=== PATIENT | female | born 1940 | race American Indian/Alaskan Native ===

== ENCOUNTER 2018-08-23 09:44 | Outpatient (CLI) | payer MEDICARE, OTHER | END 2018-08-23 09:45 | disposition home or self-care (01) | LOC: C.USIC 09:45 | DX: N95.0 Postmenopausal bleeding (principal) ==

== ENCOUNTER 2018-11-11 08:49 | Day surgery (SDC) | payer MEDICARE ==
[2018-11-11 09:34] VITALS: BMI 28.1
[2018-11-11] MEDS ORDERED: Midazolam 2 MG/2 ML VIAL ONE (12:47)
[2018-11-11] MEDS ORDERED: Propofol 10 mg/ml Inj (20 ML) ONE (12:47)
[2018-11-11] MEDS ORDERED: Lactated Ringer's 1,000 ML IV ONE (13:22)
[2018-11-11] MEDS ORDERED: HYDROmorphone 0.5 mg/0.5 ml ISec IVP PRN (13:27)
[2018-11-11 14:50] VITALS: RESP 18
[2018-11-11 15:14] VITALS: BP 157/75; PULSE 65; TEMP 97.6; O2SAT 99
--- NOTE | 2018-11-11 23:26 | OP ---
PROCEDURE DATE: 11/11/2018 PREOPERATIVE DIAGNOSIS: Postmenopausal bleeding. POSTOPERATIVE DIAGNOSIS: Postmenopausal bleeding, submucosal myoma. PROCEDURE: Hysteroscopic myomectomy, dilatation and curettage. OPERATIVE FINDINGS: Cervical stenosis, 8 to 10 weeks size anteverted uterus. Bilateral ostia visualized with submucosal mass noted within the myometrial cavity less than 1 cm along the inferior uterine wall protruding 100% into the cavity. ASSESSMENT: Endocervical curettings, endometrial curettings, submucosal myoma. ESTIMATED BLOOD LOSS: 5 mL. BLOOD PRODUCTS: None. COMPLICATIONS: None. DESCRIPTION OF PROCEDURE: The patient was taken to the operating room, where she was given general anesthesia. Once it was found to be adequate, she was placed on the operating table in dorsal supine position with legs supported using stirrups. The patient was then prepped and draped in the usual sterile fashion. A time-out was performed to confirm correct patient and correct procedure. Bimanual exam was performed with the above-mentioned findings. The cervix was adequately visualized and a single-tooth tenaculum was placed in the anterior lip of the cervix. Endocervical curettings were obtained with a Kevdarleneian curette and sent to pathology on a Telfa. Cervical dilation was performed. The uterus was then sounded to 8 cm. Following this, cervix was sequentially dilated to allow for introduction of the hysteroscope under direct visualization using normal saline as the distention media. Above-mentioned finding. Bilateral ostia were visualized. The MyoSure was then inserted and the mass was then carefully resected. Hysteroscope was then removed. Gentle curettage was done at 360 degrees until gritty texture was noted. The hysteroscope was then reintroduced. There was good hemostasis noted. The mass was then resected. All instruments were removed. There was good hemostasis at the tenaculum puncture site. At the end of the procedure, all needle, sponge and instrument counts were noted to be correct x2. The patient tolerated the procedure well and was transferred to the recovery room in stable condition. Mackenzie Valencia MD
== END 2018-11-11 15:07 | disposition home or self-care (01) ==
LOC: C.SDS 08:49
PROVIDERS: ATTEND Obstetrics & Gynecology
DX: N84.0 Polyp of corpus uteri (principal); N95.0 Postmenopausal bleeding; N88.2 Stricture and stenosis of cervix uteri
CPT/HCPCS: 58558; 88305; J2250; J2704; J3010; J7120